=== PATIENT | male | born 1960 | race African-American/Black ===

== ENCOUNTER 2017-03-25 13:27 | Emergency (ER) | payer BC ==
[2017-03-25 13:31] VITALS: BP 143/86; PULSE 68; TEMP 98.1; BMI 29.2
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
== END 2017-03-25 15:37 | disposition home or self-care (01) ==
LOC: JERFT 13:27
PROC: 2W3MXYZ Immobilization of Left Lower Extremity using Other Device (ICD-10-PCS; principal; 2017-03-25)
DX: M25.562 Pain in left knee (principal); X50.0XXA Overexertion from strenuous movement or load, initial encounter; X50.9XXA Other and unspecified overexertion or strenuous movements or postures, initial encounter; Y93.89 Activity, other specified; Y92.89 Other specified places as the place of occurrence of the external cause; Y99.8 Other external cause status
CPT/HCPCS: 73562-TC-LT; 99281-25

== ENCOUNTER 2020-06-24 17:30 | Inpatient (IN) | payer BC ==
--- NOTE | 2020-06-24 17:50 | PDOC ---
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 Patient reports 2 weeks of SOB. Initially got covid-19 tested because he was having a LLOYD and wanted to know if he had covid in the past and if he could donate plasma, ended up testing positive for active infection. Lives at home w ith family but has been self-isolating. Still has taste and smell but decreased PO intake, mild fevers intermittently. Here today for significantly worse SOB, now unable to ambulate from bed to bathroom and is SOB even at rest. No prior history of pulmonary disease. No meds taken. No drug allergies. Past History - Medical History Allergies/Adverse Reactions: Allergies Allergy/AdvReac Type Severity Reaction Status Date / Time No Known Allergies Allergy Verified 06/24/20 17:38 Home Medications: Ambulatory Orders Naproxen [Naprosyn -] 500 mg PO BID PRN #14 tablet MDD 2 03/25/17 HTN: Yes Hypercholesterolemia: Yes - Immunization History Immunization Up to Date: Yes - Psycho-Social/Smoking History Smoking History: Never smoked Review of Systems - Review of Systems Able to Perform ROS?: Yes Constitutional: Yes: Chills, Fever HEENTM: No: Symptoms Reported Respiratory: Yes: Cough, Shortness of Breath, SOB with Exertion, SOB at Rest. No: Productive cough Cardiac (ROS): No: Chest Pain, Irregular Heart Rate, Lightheadedness, Palpitations, Syncope ABD/GI: Yes: Poor Appetite, Poor Fluid Intake. No: Constipated, Diarrhea, Nausea, Vomiting : No: Symptoms Reported Musculoskeletal: No: Symptoms Reported Integumentary: No: Symptoms Reported Neurological: No: Headache, Numbness, Paresthesia Endocrine: No: Symptoms Reported Hematologic/Lymphatic: No: Symptoms Reported All Other Systems: Reviewed and Negative *Physical Exam - Physical Exam General Appearance: Yes: Nourished, Appropriately Dressed, Other (appears fit and well-nourished, breathing heavily on NC). No: Apparent Distress HEENT: positive: EOMI, TEJA, Normal Voice, Symmetrical, Pharynx Normal, Hearing Grossly Normal. negative: Scleral Icterus (R), Scleral Icterus (L), Pharyngeal Erythema, Tonsillar Exudate, Tonsillar Erythema Neck: positive: Trachea midline, Normal Thyroid, Supple. negative: Tender, R igid, Lymphadenopathy (R), Lymphadenopathy (L), Tender lateral, Tender midline Respiratory/Chest: positive: Respiratory Distress, Labored Respiration, Rapid RR, Rhonchi (course breath sounds bilaterally to all mena). negative: Chest Tender, Lungs Clear, Normal Breath Sounds, Accessory Muscle Use, Crackles, Rales, Stridor, Wheezing Cardiovascular: positive: Regular Rhythm, Regular Rate. negative: Murmur, Tachycardia Gastrointestinal/Abdominal: positive: Normal Bowel Sounds, Flat, Soft. negative: Tender, Organomegaly, Pulsatile Mass, Guarding, Rebound Musculoskeletal: positive: Normal Inspection. negative: CVA Tenderness, Decreased Range of Motion, Vertebral Tenderness Extremity: positive: Normal Capillary Refill, Normal Inspection, Normal Range of Motion, Pelvis Stable. negative: Tender, Pedal Edema, Swelling, Calf Tenderness Neurologic: positive: Fully Oriented, Alert, Normal Mood/Affect, Normal Response ED Treatment Course - LABORATORY CBC & Chemistry Diagram: 06/24/20 17:50 06/24/20 17:50 Medical Decision Making - Medical Decision Making 06/24/20 19:01 Patient known covid-19 positive now presenting with LEVIN and worsening SOB, no prior pulmonary disease or cardiac disease, highly consistent with covid-19 pneumonitis and hypoxic respiratory failure. COVID-19 labs sent. Patient on bus monitor and isolated. Patient satting 95% on 7L NC, placing on high flow for patient comfort and getting ABG for evaluation of oxygenation. Able to tolerate PO, giving PO hydration. Discussed possible convalescent plasma infusion, which patient has signed consent for. Blood consent obtained. Will contact plasma team once labs back. 06/24/20 19:11 CXR appears remarkably like covid-19 pneumonitis. Labs notable for: - CBC WNL - ABG pH 7.568 CO2 28.80 O2 89.6 on 6L NC, satting well on NC without acidosis - NA 132 - LA 1.5 - AST 228 - ALT 230 06/24/20 19:52 Dr. Dukes consulted regarding plasma, will put orders in and see. Will admit TELE. 06/24/20 20:15 Discussed case with admitting team, accepts to tele under Dr. Johnson. Patient given food to eat, desats down to 87 while eating. Discharge - Discharge Information Problems reviewed: Yes Clinical Impression/Diagnosis: COVID-19 Respiratory failure Qualifiers: Chronicity: acute Respiratory failure complication: hypoxia Qualified Code(s): J96.01 - Acute respiratory failure with hypoxia Condition: Guarded - Admission Yes - Follow up/Referral Referrals: Glenn Delgado MD [Primary Care Provider] - - Patient Discharge Instructions - Post Discharge Activity
[2020-06-24] MEDS ORDERED: DEXAMETHASONE SOD PHOSPHATE 4 MG/1 ML VIAL IVPUSH ONE (18:29)
[2020-06-24] MEDS ORDERED: DEXAMETHASONE SOD PHOSPHATE 10 MG/1 ML VIAL ONE (18:33)
[2020-06-24 18:42] LABS: BASO % 0.6 % (0-2.0); EOS % 0.2 % (0-4.5); HEMATOCRIT 39.5 % (35.4-49); HEMOGLOBIN 13.3 GM/dL (11.7-16.9); LYMPH % 8.3 % (8-40); MCH 28.5 pg (25.7-33.7); MCHC 33.7 g/dl (32.0-35.9); MEAN CELL VOLUME 84.7 fl (80-96); MEAN PLT VOLUME 8.6 fl (7.5-11.1); MONO % 3.5 % (3.8-10.2); NEUT % 87.4 % (42.8-82.8); PLATELET COUNT 449 K/MM3 (134-434); RBC 4.66 M/mm3 (4.00-5.60); RDW 14.6 % (11.9-15.9); WHITE BLOOD COUNT 9.1 K/mm3 (4.0-10.0)
[2020-06-24] MEDS ORDERED: SODIUM CHLORIDE 500 ML IV SCH (18:45)
[2020-06-24 18:48] LABS: ARTERIAL BLD GAS O2 SATURATION 97.9 mmHg (95-98); ARTERIAL BLOOD GAS BASE EXCESS 4.1 mmol/L (-2-2); ARTERIAL BLOOD GAS PO2 89.6 mmHg (80-100); ARTERIAL BLOOD GAS pH 7.568 (7.350-7.450)
[2020-06-24 18:49] LABS: INR 1.18 (0.83-1.09); PROTHROMBIN TIME (PATIENT) 13.9 SEC (9.7-13.0)
[2020-06-24 18:51] LABS: ALLENS TEST POSITIVE
[2020-06-24 18:52] LABS: ACTIVATED PTT 34.3 SECONDS (25.2-36.5)
[2020-06-24 19:21] LABS: ALBUMIN 2.6 g/dl (3.4-5.0); ALK PHOS 192 U/L (45-117); ANION GAP 9 MMOL/L (8-16); BILIRUBIN,DIRECT 0.8 mg/dL (0.0-0.2); BILIRUBIN,TOTAL 1.6 mg/dL (0.2-1); BLOOD UREA NITROGEN 18.8 mg/dL (7-18); CALCIUM 8.2 mg/dL (8.5-10.1); CHLORIDE 94 mmol/L (98-107); CO2 29 mmol/L (21-32); CREATININE 1.1 mg/dL (0.55-1.3); GLUCOSE,RANDOM 112 mg/dL (74-106); POTASSIUM 4.1 mmol/L (3.5-5.1); SGOT/AST 228 U/L (15-37); SODIUM 132 mmol/L (136-145); TOT PROT 6.9 g/dl (6.4-8.2)
[2020-06-24 19:33] LABS: SGPT/ALT 230 U/L (13-61)
--- NOTE | 2020-06-24 20:05 | PDOC ---
Documentation entered by Ela Willis SCRIBE, acting as scribe for Ying Menchaca DO. Ying Menchaca DO: This documentation has been prepared by the carter, Ela Willis SCRIBE, under my direction and personally reviewed by me in its entirety. I confirm that the documentation accurately reflects all work, treatment, procedures, and medical decision making performed by me. 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 Patient tested positive for Covid at [facility] and has been self isolating at home but now his SOB is so bad he "cannot even walk from the bed to the bathroom". Patient endorses: intermittent fevers and decreased PO intake Patient denies: loss of smell or taste, or any other related symptoms Allergies: NKDA - Physicial Exam PE: 06/24/20 20:02 Gen: awake, conversational dyspnea heart: +s1s2 reg lungs: coarse rhonchorous bs b/l bases abd: soft, nt/nd +bs ext: no c/c/e - Medical Decision Making 06/24/20 20:02 a/p: 60yo male with +covid 19 test at [facility] -pt with increasing sob, restart of diarrhea -pt with coarse bs -concern for worsening covid19 diseases -conversational dyspnea, unable to walk from bedroom to kitchen without getting sob -will send labs, covid biomarkers, cxr -decadron given -will need admission as pulse ox 82 RA 06/24/20 20:04 pt more comfortable on high flow cxr shows bilateral patchy infiltrates covid biomarkers elevated case discussed with dr. Dukes who will dose remdesivir pt updated pending discussion with junito for admission 06/24/20 20:15 resident discussed the case with junito who accepts pt to service Discharge - Discharge Information Problems reviewed: Yes Clinical Impression/Diagnosis: COVID-19 Respiratory failure Qualifiers: Chronicity: acute Respiratory failure complication: hypoxia Qualified Code(s): J96.01 - Acute respiratory failure with hypoxia Condition: Guarded - Admission Yes - Follow up/Referral Referrals: Glenn Delgado MD [Primary Care Provider] - - Patient Discharge Instructions - Post Discharge Activity
[2020-06-24 20:18] LABS: EPI CELLS 11 /uL (0-25.1); HYALINE CASTS 0 /uL (0-3.1); URINE APPEARANCE CLEAR; URINE BACTERIA 55 /uL (0-1359); URINE BILIRUBIN 1+ (NEGATIVE); URINE COLOR DK YELLOW; URINE GLUCOSE (UA) NEGATIVE (NEGATIVE); URINE KETONE NEGATIVE (NEGATIVE); URINE LEUK ESTERASE NEGATIVE (NEGATIVE); URINE NITRITE NEGATIVE (NEGATIVE); URINE PROTEIN 2+ (NEGATIVE); URINE RBC 24 /uL (0-23.9); URINE UROBILINOGEN 4.0 E.U/dl mg/dL (0.2-1.0); URINE WBC 12 /uL (0-25.8)
[2020-06-24 20:23] LABS: LDH 894 U/L (87-246)
--- OUTSIDE RECORDS SUMMARY | 2020-06-24 20:42 | XMS ---
:1960 [facility] Providers Name Role Phone GUEVARA GALAN Unavailable Unavailable Re-disclosure Warning The records that you are about to access may contain information from federally- assisted alcohol or drug abuse programs. If such information is present, then the following federally mandated warning applies: This information has been disclosed to you from records protected by federal confidentiality rules (42 CFR part 2). The federal rules prohibit you from making any further disclosure of this information unless further disclosure is expressly permitted by the written consent of the person to whom it pertains or as otherwise permitted by 42 CFR part 2. A general authorization for the release of medical or other information is NOT sufficient for this purpose. The Federal rules restrict any use of the information to criminally investigate or prosecute any alcohol or drug abuse patient.The records that you are about to access may contain highly sensitive health information, the redisclosure of which is protected by Article 27-F of the [facility] Public Health law. If you continue you may haveaccess to information: Regarding HIV / AIDS; Provided by facilities licensed or operated by the [facility] Office of Mental Health; or Provided by the [facility] Office for People With Developmental Disabilities. If such information is present, then the following [facility] mandated warning applies: This information has been disclosed to you from confidential records which are protected by state law. State law prohibits you from making any further disclosure of this information without the specific written consent of the person to whom it pertains, or as otherwise permitted by law. Any unauthorized further disclosure in violation of state law may result in a fine or correction sentence or both. A general authorization for the release of medical or other information is NOT sufficient authorization for further disclosure. Encounters Encounter Providers Location Date Indications Data Source(s ) Outpatient Attender: ANGELIA, 06/18/2020 Z03.818 [facility] GUEVARA Mojica.Admitter: 10:32:00 AM Health Care GUEVARA GALAN [employer]T [employer] tion Z03.818 Outpatient Attender: ANGELIA, 06/18/2020 06:00:00 Z03.818 [facility] GUEVARA Mojica.Admitter: AM EDT Health Care GUEVARA GALAN. Corpora tion Z03.818 Insurance Providers Payer name Policy type / Policy ID Covered Covered constitution party's Policy Plan Coverage type constitution party ID relationship to [employer] Information [employer] PPO [id number] SP [id number] Problems, Conditions, and Diagnoses Code Display Name Description Problem Type Effective Data Sour ce(s) Dates Z03.818 Encounter for ENCNTR FOR OBS Diagnosis 06/18/2020 [facility] observation for FOR SUSP EXPSR TO 10:32:00 AM [employer] suspected OTH BIOLG AGENTS [employer] poration exposure to other RULED OUT biological agents ruled out Results ID Date Data Source [id number] 06/22/2020 12:00:00 AM EDT [facility] Name Value Range Interpretation Code Description Data Kyleigh rce(s) Supporting Document(s ) SARS-COV-2 Rohwer RNA RT-PCR [facility] This lab was ordered by [facility] and reported by [facility]. Procedure
--- NOTE | 2020-06-24 21:04 | PN ---
Teaching Attending Note Name of Resident: Richie Beyer ATTENDING PHYSICIAN STATEMENT I saw and evaluated the patient. I reviewed the resident's note and discussed the case with the resident. I agree with the resident's findings and plan as documented. SUBJECTIVE: Patient is a 60 year old man who tested positive for COVID-19 at [facility] a few days ago with PMH of HTN, HLD and Prediabetes presenting to the ER with worsening SOB and LEVIN. Patient reports two weeks of SOB. Lives at home with family but has been self-isolating. Still has taste and smell but decreased oral intake and mild fevers intermittently. He is unable to ambulate from bed to bathroom and now has SOB even at rest. No prior history of pulmonary disease. Patient denies chest pain, abdominal pain, headache, palpitations, dizziness, fever, chills, nausea, vomiting, diarrhea, constipation, dysuria, frequency, urgency, melena, hematochezia or hematuria. 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 Denies alcohol, tobacco or illicit drug use. No sick contacts or recent travels. Family history is unremarkable. OBJECTIVE: Alert Vital Signs Period Temp Pulse Resp BP Sys/Pires Pulse Ox Last 24 Hr 99.5 F-99.9 F 90-97 9-28 137-148/81-91 88-90 HEENT: No Jaundice, eye redness or discharge, PERRLA, EOMI. Normocephalic, atraumatic. External ears are normal and hearing is grossly intact. No nasal discharge. Neck: Supple, nontender. No palpable adenopathy or thyromegaly. No JVD Chest: Good effort. Clear to auscultation and percussion. Heart: Regular. No S3, rub or murmur Abdomen: Not distended, soft, nontender and no HSM. No rebound or guarding. Normal bowel sounds. Ext: Peripheral pulses intact. No leg edema. Skin: Warm and dry. No petechiae, rash or ecchymosis. Neuro: Alert. Oriented x3. CN 2-12 grossly intact. Sensation grossly intact in all four extremities and DTR are symmetric. Psych: Appropriate mood and affect. Good insight. Home Medications Medication Instructions Recorded Naproxen [Naprosyn -] 500 mg PO BID PRN #14 tablet MDD 2 03/25/17 Abnormal Lab Results 09/06/24/20 06/24/20 17:50 17:50 17:50 Plt Count 449 H Neutrophils % 87.4 H Monocytes % 3.5 L Nucleated RBC % 1 H PT with INR 13.90 H INR 1.18 H D-Dimer 1899 H ABG pH ABG pCO2 ABG Base Excess Sodium Chloride BUN Random Glucose Calcium Ferritin Total Bilirubin Direct Bilirubin AST ALT Alkaline Phosphatase LD Total Creatine Kinase C-Reactive Protein Albumin Urine Protein Urine Bilirubin 06/24/20 06/24/20 06/24/20 17:50 17:50 18:30 Plt Count Neutrophils % Monocytes % Nucleated RBC % PT with INR INR D-Dimer ABG pH 7.568 H ABG pCO2 28.30 L ABG Base Excess 4.1 H Sodium 132 L Chloride 94 L BUN 18.8 H Random Glucose 112 H Calcium 8.2 L Ferritin > 2000.0 H Total Bilirubin 1.6 H Direct Bilirubin 0.8 H AST 228 H ALT 230 H Alkaline Phosphatase 192 H LD Total 894 H Creatine Kinase 376 H C-Reactive Protein > 19.0 H Albumin 2.6 L Urine Protein 2+ H Urine Bilirubin 1+ H Current Medications Generic Name Dose Route Start Last Admin Trade Name Freq PRN Reason Stop Dose Admin Amlodipine Besylate 5 mg 06/25/20 10:00 Norvasc - PO DAILY [facility] Ascorbic Acid 250 mg 06/25/20 10:00 Vitamin C - PO BID [facility] Dexamethasone 6 mg 06/25/20 10:00 Decadron - PO DAILY [facility] Enoxaparin Sodium 90 mg 06/25/20 01:00 06/25/20 01:48 Lovenox - SQ 90 mg BID [facility] Administration Non-Formulary Medication 100 250 mls @ 250 mls/hr 06/25/20 22:31 mg/ Sodium Chloride IVPB 06/28/20 10:59 DAILY [facility] Doxycycline Hyclate 100 mg/ 100 mls @ 50 mls/hr 06/25/20 00:22 06/25/20 01:05 Dextrose IVPB 100 mls/hr BID [facility] Administration Zinc Sulfate 220 mg 06/25/20 10:00 Orazinc - PO DAILY [facility] ASSESSMENT AND PLAN: 1. COVID-19 pneumonia/Acute hypoxic respiratory failure - CXR shows cardiomegaly with bilateral airspace opacities. Oxygen saturation was 87% on room air. Viral testing for COVID-19 ordered and patient placed on airborne, droplet and contact isolation. Started on supplemental high flow oxygen via nasal cannula. ER staff gave Dexamethasone 6 mg IV, consulted Pulmonary and patient will get Remdesivir and convalescent plasma. Will monitor LFTs, get RUQ sonogram and avoid heptotoxic drugs. EKG shows NSR at 88/minute and QTc [address]-T wave changes. Initial troponin is negative. Will avoid drugs that may prolong QTc. Will treat patient with Lovenox 90 mg sq q 12 hours, Zinc sulfate, Pepcid, Vitamin C, IV Ceftriaxone and Azithromycin and consult ID. Will continue comprehensive care for all of patients comorbid conditions. 2. Hypoalbuminemia - Possibly due to combined effects of proteinuria, malnutrition and inflammation associated with comorbid conditions. Will ensure adequate dietary protein intake and also consult bicycle technician. 3. Prediabetes - Will check HbA1c and when stable get urine protein/creatinine ratio since he may benefit from ACEI/ARB therapy. Implement sliding scale insulin regimen. Provide comprehensive diabetes care with patient teaching and counseling about the importance of adherence to prescribed diabetes regimen, euglycemia, eye care and foot care. 4. Hypertension Will restart suitable outpatient antihypertensive drugs when clinically appropriate. Subsequently, will revise regimen to ensure [id number] excellent BP control. Patient counseled on the injurious effects of uncontrolled hypertension. Nonpharmacologic measures to control hypertension like weight loss, salt restriction and exercise stressed. Importance of adherence to treatment regimen and attainment of normotension emphasized. 5. DVT prophylaxis - Lovenox 90 mg SQ q 12 hours. 6. Advance directives - Full code
[2020-06-24] MEDS ORDERED: REMDESIVIR 200 MG in SODIUM CHLORIDE 210 ML IVPB ONE (22:31)
--- NOTE | 2020-06-25 00:32 | HP ---
CHIEF COMPLAINT: SOB PCP: HISTORY OF PRESENT ILLNESS: 60M w/ pmh of HTN, HLD, pre-DM BIBA for complaint of SOB while at rest, lying down. Had outpt testing and found to be COVID+, 2d prior. Has had SOB [id number], usually with activity and walking throughout the house. Today was concerned bc it was the first time he was SOB while at rest. Has had associated fever(intermittently 100F, on home thermometer), diarrhea, low appetite, weight loss. Denies cough, NV, loss of taste, loss of smell. [place] Has had sick coworkers. No sick family members. ER course was notable for: -99.9F, 97, 137/91, 24 -88% on 4L, 95% on 7L, then placed on hiflow for comfort -Ddimer 1898 -AST/ALT 228/250 -CXR: congestive and bilateral infilitrative changes -dexamethasone 6mg IVP, NS @100 -EM contacted Roseline who approved Remdesivir Recent Travel: none PAST MEDICAL HISTORY: as above PAST SURGICAL HISTORY: cervical neck fusion x2, knee x2, shoulder sx Social History: Smoking: smoking during teenage years(4-5cig/d) Alcohol: denies Drugs: denies Allergies No Known Allergies Allergy (Verified 06/24/20 17:38) HOME MEDICATIONS: Home Medications Medication Instructions Recorded Naproxen [Naprosyn -] 500 mg PO BID PRN #14 tablet MDD 2 03/25/17 REVIEW OF SYSTEMS CONSTITUTIONAL: fever, chills,loss of appetite, weight change Absent: diaphoresis, generalized weakness, malaise, HEENT: Absent: rhinorrhea, nasal congestion, throat pain, throat swelling, difficulty swallowing, mouth swelling, ear pain, eye pain, visual changes CARDIOVASCULAR: Absent: chest pain, syncope, palpitations, irregular heart rate, lightheadedness, peripheral edema RESPIRATORY: shortness of breath, dyspnea with exertion, Absent: cough, orthopnea, wheezing, stridor, hemoptysis GASTROINTESTINAL:diarrhea, Absent: abdominal pain, abdominal distension, nausea, vomiting, constipation, melena, hematochezia GENITOURINARY: Absent: dysuria, frequency, urgency, hesitancy, hematuria, flank pain, genital pain MUSCULOSKELETAL: Absent: myalgia, arthralgia, joint swelling, back pain, neck pain SKIN: Absent: rash, itching, pallor HEMATOLOGIC/IMMUNOLOGIC: Absent: easy bleeding, easy bruising, lymphadenopathy, frequent infections ENDOCRINE: Absent: unexplained weight gain, unexplained weight loss, heat intolerance, cold intolerance NEUROLOGIC: headache, Absent: focal weakness or paresthesias, dizziness, unsteady gait, seizure, mental status changes, bladder or bowel incontinence PSYCHIATRIC: Absent: anxiety, depression, suicidal or homicidal ideation, hallucinations. PHYSICAL EXAMINATION Vital Signs - 24 hr 06/24/20 06/24/20 06/24/20 18:03 18:42 18:43 Temperature 99.9 F H 99.5 F Pulse Rate 97 H Pulse Rate [ 94 H Apical] Respiratory 24 H 28 H Rate Blood Pressure 137/91 Blood Pressure 148/90 [Right Arm] O2 Sat by Pulse 88 L 88 L 88 L Oximetry (%) 06/24/20 06/24/20 06/24/20 18:45 19:53 20:30 Temperature Pulse Rate Pulse Rate [ 90 Apical] Respiratory 9 L Rate Blood Pressure Blood Pressure 137/81 [Right Arm] O2 Sat by Pulse 90 L 88 L 90 L Oximetry (%) 06/24/20 06/24/20 23:28 23:46 Temperature Pulse Rate Pulse Rate [ 78 Apical] Respiratory 22 H Rate Blood Pressure Blood Pressure 129/76 [Right Arm] O2 Sat by Pulse 94 L 97 Oximetry (%) GENERAL: Awake, alert, and fully oriented, in no acute distress. Well-fed HEAD: Normal with no signs of trauma. EYES: sclera anicteric, conjunctiva clear. No lid lag. EARS, NOSE, THROAT: oropharynx clear without exudates. Moist mucous membranes. NECK: supple without lymphadenopathy, JVD, or masses. LUNGS: Breath sounds equal, coarse bilateral BS. No wheezes. No accessory muscle use. Breathing 91% on Hi-Flow(50L/min, 30%) HEART: Regular rate and rhythm, normal S1 and S2 without murmur, rub or gallop. ABDOMEN: Soft, nontender, not distended, no guarding, no rebound. MUSCULOSKELETAL: Normal range of motion at all joints. UPPER EXTREMITIES: 2+ pulses, warm, well-perfused. No cyanosis. No clubbing. No peripheral edema. LOWER EXTREMITIES: 2+ pulses, warm, well-perfused. No calf tenderness. No peripheral edema. NEUROLOGICAL: Normal speech. Moving all extremities spontaneously and w/o issues SKIN: Warm, dry, normal turgor, no rashes or lesions noted, normal capillary re fill. Laboratory Results - last 24 hr 06/24/20 06/24/20 06/24/20 17:50 17:50 17:50 WBC 9.1 RBC 4.66 Hgb 13.3 Hct 39.5 MCV 84.7 MCH 28.5 MCHC 33.7 RDW 14.6 Plt Count 449 H MPV 8.6 Absolute Neuts (auto) 8.0 Neutrophils % 87.4 H Lymphocytes % 8.3 Monocytes % 3.5 L Eosinophils % 0.2 Basophils % 0.6 Nucleated RBC % 1 H PT with INR 13.90 H INR 1.18 H PTT (Actin FS) 34.3 D-Dimer 1899 H Anticoagulation Therapy Puncture Site Patient Temperature ABG pH ABG pCO2 ABG pO2 ABG HCO3 ABG O2 Sat (Measured) ABG O2 Content ABG Base Excess John Test Patient On Oxygen O2 Delivery Device Oxygen Flow Rate Vent Mode Vent Rate Mechanical Rate PEEP Pressure Support Vent Sodium Potassium Chloride Carbon Dioxide Anion Gap BUN Creatinine Est GFR (CKD-EPI)AfAm Est GFR (CKD-EPI)NonAf Random Glucose Lactic Acid Calcium Ferritin Total Bilirubin Direct Bilirubin AST ALT Alkaline Phosphatase LD Total Creatine Kinase Creatine Kinase Index CK-MB (CK-2) Troponin I C-Reactive Protein Total Protein Albumin Urine Color Urine Appearance Urine pH Ur Specific [place] Urine Protein Urine Glucose (UA) Urine Ketones Urine Blood Urine Nitrite Urine Bilirubin Urine Urobilinogen Ur Leukocyte Esterase Urine WBC (Auto) Urine RBC (Auto) Urine Casts (Auto) U Epithel Cells (Auto) Urine Bacteria (Auto) Blood Type Antibody Screen 06/24/20 06/24/20 06/24/20 17:50 17:50 17:50 WBC RBC Hgb Hct MCV MCH MCHC RDW Plt Count MPV Absolute Neuts (auto) Neutrophils % Lymphocytes % Monocytes % Eosinophils % Basophils % Nucleated RBC % PT with INR INR PTT (Actin FS) D-Dimer Anticoagulation Therapy Puncture Site Patient Temperature ABG pH ABG pCO2 ABG pO2 ABG HCO3 ABG O2 Sat (Measured) ABG O2 Content ABG Base Excess John Test Patient On Oxygen O2 Delivery Device Oxygen Flow Rate Vent Mode Vent Rate Mechanical Rate PEEP Pressure Support Vent Sodium 132 L Potassium 4.1 Chloride 94 L Carbon Dioxide 29 Anion Gap 9 BUN 18.8 H Creatinine 1.1 Est GFR (CKD-EPI)AfAm 82.95 Est GFR (CKD-EPI)NonAf 71.57 Random Glucose 112 H Lactic Acid 1.5 Calcium 8.2 L Ferritin > 2000.0 H Total Bilirubin 1.6 H Direct Bilirubin 0.8 H AST 228 H ALT 230 H Alkaline Phosphatase 192 H LD Total 894 H Creatine Kinase 376 H Creatine Kinase Index No Result Required. CK-MB (CK-2) < 1.0 Troponin I < 0.02 C-Reactive Protein > 19.0 H Total Protein 6.9 Albumin 2.6 L Urine Color Dk yellow Urine Appearance Clear Urine pH 6.0 Ur Specific [place] 1.012 Urine Protein 2+ H Urine Glucose (UA) Negative Urine Ketones Negative Urine Blood Trace Urine Nitrite Negative Urine Bilirubin 1+ H Urine Urobilinogen 4.0 e.u/dl Ur Leukocyte Esterase Negative Urine WBC (Auto) 12 Urine RBC (Auto) 24 Urine Casts (Auto) 0 U Epithel Cells (Auto) 11 Urine Bacteria (Auto) 55 Blood Type Antibody Screen 06/24/20 06/24/20 17:50 18:30 WBC RBC Hgb Hct MCV MCH MCHC RDW Plt Count MPV Absolute Neuts (auto) Neutrophils % Lymphocytes % Monocytes % Eosinophils % Basophils % Nucleated RBC % PT with INR INR PTT (Actin FS) D-Dimer Anticoagulation Therapy No Result Required. Puncture Site Left radial Patient Temperature No Result Required. ABG pH 7.568 H ABG pCO2 28.30 L ABG pO2 89.6 ABG HCO3 25.2 ABG O2 Sat (Measured) 97.9 ABG O2 Content No Result Required. ABG Base Excess 4.1 H John Test Positive Patient On Oxygen No Result Required. O2 Delivery Device No Result Required. Oxygen Flow Rate 6 Vent Mode No Result Required. Vent Rate No Result Required. Mechanical Rate No Result Required. PEEP No Result Required. Pressure Support Vent No Result Required. Sodium Potassium Chloride Carbon Dioxide Anion Gap BUN Creatinine Est GFR (CKD-EPI)AfAm Est GFR (CKD-EPI)NonAf Random Glucose Lactic Acid Calcium Ferritin Total Bilirubin Direct Bilirubin AST ALT Alkaline Phosphatase LD Total Creatine Kinase Creatine Kinase Index CK-MB (CK-2) Troponin I C-Reactive Protein Total Protein Albumin Urine Color Urine Appearance Urine pH Ur Specific [place] Urine Protein Urine Glucose (UA) Urine Ketones Urine Blood Urine Nitrite Urine Bilirubin Urine Urobilinogen Ur Leukocyte Esterase Urine WBC (Auto) Urine RBC (Auto) Urine Casts (Auto) U Epithel Cells (Auto) Urine Bacteria (Auto) Blood Type B POSITIVE Antibody Screen Negative ASSESSMENT/PLAN: 60M w/ pmh of HTN, HLD, pre-DM BIBA for complaint of SOB while at rest, while lying down. Had outpt testing and found to be COVID+, 2d prior. Pt having O2 requirements(Hiflow, Sat at 91%), Labs notable for elevated inflamm markers(D- dimer 1899, CRP >19, LDH 894, ferritin > 2k). CXR showing b/l patchy infiltrates. Pt admitted for acute hypoxic respiratory failure 2/2 COVID pneumonitis. #Acute Hypoxic Respiratory Failure 2/2 COVID Pneumonitis --cannot r/o superimposed bacterial PNA - supplemental O2 requriements: --Hi-Flow and titrate down as tolerated --Goal oxygenation >90% - abx regimen: --ceftriaxone + doxycline - zinc, vitamin c - possible convalescent plasma - Remedesivir started - Pulmon consulted(Roseline): --recs pending - ID consulted(David): --recs pending #elevated inflamatory markers --less likely LE DVT, as lack of calf tenderness; less likely PE, as pt is nontachycardic and nontachypneic > D-dimer 1899, CRP >19, LDH 894, ferritin > 2k - holding off on CTA chest or venous duplex of LE for now - AC regimen: --therapeutic Lovenox, 80mg BID - steroid regimen: --dexamethasone 6mg, QD - trend daily inflammatory markers #prolonged QTc > EKG: NSR, QTc 459 - avoid QTc prolonging meds #transminitis --likely 2/2 COVID > AST/ALT 228/250 #chronic HTN - cw home Amloidipine(pt doesn' know dose) #chronic HLD - pt doesn't know which statin FEN - avoid mIVF - regular diet DVT PPX - therapeutic lovenox Family Medical History Family History: As Documented Family Hx Cancer: Mother (uterine CA) Visit type - Emergency Visit Emergency Visit: Yes ED Registration Date: 06/24/20 Care time: The patient presented to the Emergency Department on the above date and was hospitalized for further evaluation of their emergent condition. - New Patient This patient is new to me today: Yes Date on this admission: 06/25/20 - Critical Care Critical Care patient: No ATTENDING PHYSICIAN STATEMENT I saw and evaluated the patient. I reviewed the resident's note and discussed the case with the resident. I agree with the resident's findings and plan as documented. SUBJECTIVE: OBJECTIVE: ASSESSMENT AND PLAN:
[2020-06-25] MEDS ORDERED: DOXYCYCLINE HYCLATE 100 MG VIAL ONE ×4 (00:50→20:53)
[2020-06-25] MEDS ORDERED: CEFTRIAXONE 1 GM/50 ML BAG ONE (00:50)
[2020-06-25] MEDS: CEFTRIAXONE 1 GM in DEXTROSE 5%-WATER - 50 ML IVPB ONE ×2 (01:04→10:06)
[2020-06-25] MEDS: DOXYCYCLINE INJECTION 100 MG in DEXTROSE 5%-WATER - 100 ML IVPB SCH ×2 (01:05→10:00)
[2020-06-25] MEDS ORDERED: ENOXAPARIN NA (PORCINE) 100 MG/1 ML DISP.SYRIN SQ ONE ×2 (01:33→09:05)
[2020-06-25] MEDS: ENOXAPARIN NA (PORCINE) 80 MG/0.8 ML DISP.SYRIN SQ SCH ×3 (01:48→21:57)
[2020-06-25 06:57] LABS: EOS % 0.1 % (0-4.5); HEMATOCRIT 42.2 % (35.4-49); HEMOGLOBIN 13.7 GM/dL (11.7-16.9); LYMPH % 5.9 % (8-40); MCH 27.9 pg (25.7-33.7); MCHC 32.5 g/dl (32.0-35.9); MEAN CELL VOLUME 85.7 fl (80-96); MONO % 1.9 % (3.8-10.2); NEUT % 91.1 % (42.8-82.8); PLATELET COUNT 424 K/MM3 (134-434); RBC 4.93 M/mm3 (4.00-5.60); RDW 14.8 % (11.9-15.9); WHITE BLOOD COUNT 8.8 K/mm3 (4.0-10.0)
[2020-06-25 07:27] LABS: MAGNESIUM 3.1 mg/dL (1.8-2.4)
[2020-06-25 09:02] LABS: ALBUMIN 2.5 g/dl (3.4-5.0); ALK PHOS 192 U/L (45-117); ANION GAP 15 MMOL/L (8-16); CALCIUM 9.1 mg/dL (8.5-10.1); CHLORIDE 100 mmol/L (98-107); CO2 21 mmol/L (21-32); GLUCOSE,RANDOM 185 mg/dL (74-106); POTASSIUM 4.3 mmol/L (3.5-5.1); SGOT/AST 175 U/L (15-37); SGPT/ALT 236 U/L (13-61); SODIUM 136 mmol/L (136-145); TOT PROT 7.1 g/dl (6.4-8.2)
[2020-06-25] MEDS ORDERED: DEXAMETHASONE SOD PHOSPHATE 10 MG/1 ML VIAL ONE (09:04)
[2020-06-25] MEDS ORDERED: ZINC SULFATE 220 MG CAPSULE (FP) ONE (09:04)
[2020-06-25] MEDS ORDERED: amLODIPine BESYLATE 5 MG TABLET (FP) ONE (09:04)
[2020-06-25] MEDS ORDERED: ASCORBIC ACID 500 MG TABLET (FP) ONE (09:04)
[2020-06-25] MEDS ORDERED: DEXAMETHASONE 4 MG TABLET (FP) PO SCH (10:00)
[2020-06-25] MEDS: ASCORBIC ACID 250 MG TABLET (FP) PO SCH ×2 (10:00→21:54)
[2020-06-25] MEDS: CHOLECALCIFEROL (VIT D3) 1,000 UNIT (25 MCG) TABLET PO SCH (10:00)
[2020-06-25] MEDS: ZINC SULFATE 220 MG CAPSULE (FP) PO SCH (10:00)
[2020-06-25] MEDS: amLODIPine BESYLATE 5 MG TABLET (FP) PO SCH (10:41)
[2020-06-25 11:11] LABS: PHOSPHOROUS 3.9 mg/dL (2.5-4.9)
--- NOTE | 2020-06-25 11:35 | CON.PULM ---
Consult Consult Specialty:: PULM/CCM Referred by:: ER Reason for Consultation:: SOB - History of Present Illness Chief Complaint: SOB History of Present Illness: 60 M, tested positive for COVID-[address] [facility] a few days ago. Additional history of HTN, HLD and "Prediabetes". Admitted via the ER due to worsening SOB and LEVIN over the past 2weeks. Now reports SOB even at rest. No hemoptysis. No night sweats. No significant GI symptoms. CXR: Bilateral infiltrates consistent with capillary leak syndrome. - History Source History Provided By: Patient Limitations to Obtaining History: No Limitations - Alcohol/Substance Use Hx Alcohol Use: No - Smoking History Smoking history: Never smoked Home Medications - Allergies Allergies/Adverse Reactions: Allergies Allergy/AdvReac Type Severity Reaction Status Date / Time No Known Allergies Allergy Verified 06/24/20 17:38 - Home Medications Home Medications: Ambulatory Orders NK [No Known Home Medication] 06/25/20 Family Medical History Family Hx Cancer: Mother (uterine CA) Review of Systems - Review of Systems Constitutional: reports: Malaise, Weakness. denies: Chills, Night Sweats Eyes: reports: No Symptoms HENT: reports: No Symptoms Neck: reports: No Symptoms Cardiovascular: reports: Shortness of Breath. denies: Chest Pain, Edema, Palpitations Respiratory: reports: Cough, SOB, SOB on Exertion. denies: Hemoptysis, Orthopnea, PND, Snoring, Wheezing Gastrointestinal: reports: No Symptoms Genitourinary: reports: No Symptoms Breasts: reports: No Symptoms Reported Musculoskeletal: reports: No Symptoms Integumentary: reports: No Symptoms Neurological: reports: No Symptoms Endocrine: reports: No Symptoms Hematology/Lymphatic: reports: No Symptoms Psychiatric: reports: No Symptoms Physical Exam Vital Sings: Vital Signs Temperature 98.9 F 06/25/20 08:00 Pulse Rate 74 06/25/20 08:00 Respiratory Rate 20 06/25/20 08:00 Blood Pressure 129/78 06/25/20 08:00 O2 Sat by Pulse Oximetry (%) 92 L 06/25/20 10:53 Constitutional: Yes: Well Nourished, No Distress Eyes: Yes: Conjunctiva Clear, EOM Intact HENT: Yes: Atraumatic, Normocephalic Neck: Yes: Supple, Trachea Midline Cardiovascular: Yes: Regular Rate and Rhythm Respiratory: Yes: Cough, Diminished, Rhonchi, SOB on Exertion, Other (HFOT). No: Accessory Muscle Use, SOB, Stridor, Tachypnea, Wheezes ...Inspection: Yes: WNL ...Clubbing: No Gastrointestinal: Yes: Normal Bowel Sounds, Soft Renal/: Yes: WNL Musculoskeletal: Yes: WNL Extremities: Yes: WNL Edema: No Peripheral Pulses WNL: Yes Integumentary: Yes: WNL Neurological: Yes: WNL, Alert, Oriented ...Motor Strength: WNL Psychiatric: Yes: WNL, Alert, Oriented Labs: CBC, BMP 06/25/20 06:30 06/25/20 06:30 ABG Results ABG pH 7.568 (7.350-7.450) H 06/24/20 18:30 ABG HCO3 25.2 mmol/L (22-27) 06/24/20 18:30 ABG O2 Sat (Measured) 97.9 mmHg (95-98) 06/24/20 18:30 ABG O2 Content No Result Required. 06/24/20 18:30 ABG Base Excess 4.1 mmol/L (-2-2) H 06/24/20 18:30 Imaging - Results Chest X-ray: Report Reviewed, Image Reviewed Problem List - Problems (1) Pulmonary capillary leak syndrome Code(s): J80 - ACUTE RESPIRATORY DISTRESS SYNDROME (2) COVID-19 Code(s): U07.1 - COVID POSITIVE (3) Respiratory failure Code(s): J96.90 - RESPIRATORY FAILURE, UNSP, UNSP W HYPOXIA OR HYPERCAPNIA Qualifiers: Chronicity: acute Respiratory failure complication: hypoxia Qualified Code(s): J96.01 - Acute respiratory failure with hypoxia Assessment/Plan Remdesivir x 5 days Will investigate convalescent plasma ordering. Daily Decadron Noted empiric ABX : to discuss with ID Full AC HFOT support Follow inflammatory markers Will follow closely 4W/4S monitoring for oximetry Thank you. Dr Dukes
[2020-06-25 11:52] LABS: ANISOCYTOSIS 1+; MACROCYTOSIS 0; PLATELET ESTIMATE NORMAL
--- NOTE | 2020-06-25 13:53 | PN ---
Teaching Attending Note Name of Resident: Lobito Mike ATTENDING PHYSICIAN STATEMENT I saw and evaluated the patient. I reviewed the resident's note and discussed the case with the resident. I agree with the resident's findings and plan as documented. SUBJECTIVE: seen in am . he feels better compared to yesterday. reports improvement in breathing. had intermittent fevers at home. no cough , no CP . had one episode of diarrhea as out pt , and now stopped. No dysuria or frequency. OBJECTIVE: NAD , awake, alert, cooperative . High flow O2 on . CV: RRR, no MRG Lungs: crackles heard on R lung field half way down. and L base. Ext: No edema or rerythema onupper or lower extremities. Abd: soft, NT, ND , NL BS ASSESSMENT AND PLAN: 60 y/o man with h/o pre-DM, HL, HTN, recent COVID diagnosis ( 1 week white ) who presented with SOB, and fever and was found to have acute hypoxic resp failure. 1- Acute hypoxic resp failure 2- COVID PNA 3- Transaminitis : due to COVID plan : - elevated inflammatory markers and D dimer noted. - cont Lovenox. He understands and accepts risk of bleeding with AC - cont remdisivir , day 2/5 - cont dexamethasone , day 2/10 - Convalescent plasma was d/w him, He agrees. - ceftriaxone and doxy. Id eval - follow inflammatory markers. - cont High flow O2. cont Pulse Ox monitoring - Airborne isolation
--- NOTE | 2020-06-25 14:34 | PN ---
Physical Exam: SUBJECTIVE: Patient seen and examined in the ED, isolated 2/2 positive COVID status. On HF @ 50L 40%. Talking in full sentences, no labored breathing. OBJECTIVE: Vital Signs Period Temp Pulse Resp BP Sys/Pires Pulse Ox Last 24 Hr 98.9 F-99.9 F 74-97 9-28 129-148/76-91 88-97 GENERAL: The patient is awake, alert, and fully oriented HEAD: Normal with no signs of trauma. EYES: PERRL, extraocular movements intact, sclera anicteric, conjunctiva clear. No ptosis. ENT: Oropharynx clear without exudates, moist mucous membranes. NECK: Trachea midline, full range of motion, supple. LUNGS: Wheezing noted in the upper lung quadrants, crackles noted below. HEART: Regular rate and rhythm, S1, S2 without murmur, rub or gallop. ABDOMEN: Soft, nontender, nondistended, normoactive bowel sounds EXTREMITIES: 2+ pulses, warm, well-perfused, no edema. NEUROLOGICAL: Normal speech, gait not observed. PSYCH: Normal mood, normal affect. SKIN: Warm, dry, normal turgor, no rashes or lesions noted Laboratory Results - last 24 hr CBC, BMP 06/25/20 06:30 06/25/20 06:30 Active Medications Generic Name Dose Route Start Last Admin Trade Name Adair PRN Reason Stop Dose Admin Amlodipine Besylate 5 mg 06/25/20 10:00 06/25/20 10:41 Norvasc - PO 5 mg DAILY ERICKSON Administration Ascorbic Acid 250 mg 06/25/20 10:00 06/25/20 10:00 Vitamin C - PO 250 mg BID ERICKSON Administration Cholecalciferol 1,000 unit 06/25/20 10:00 06/25/20 10:00 Vitamin D3 - PO 1,000 unit DAILY ERICKSON Administration Dexamethasone Sodium Phosphate 6 mg 06/26/20 10:00 Decadron Injection - IVPUSH DAILY ERICKSON Enoxaparin Sodium 90 mg 06/25/20 01:00 06/25/20 10:00 Lovenox - SQ 90 mg BID ERICKSON Administration Non-Formulary Medication 100 250 mls @ 250 mls/hr 06/25/20 22:00 mg/ Sodium Chloride IVPB 06/28/20 22:59 DAILY@2200 ERICKSON Doxycycline Hyclate 100 mg/ 100 mls @ 50 mls/hr 06/25/20 00:22 06/25/20 10:00 Dextrose IVPB 50 mls/hr BID ERICKSON Administration Ceftriaxone Sodium 1 gm/ 50 mls @ 100 mls/hr 06/26/20 06:00 Dextrose IVPB DAILY ERICKSON Protocol Zinc Sulfate 220 mg 06/25/20 10:00 06/25/20 10:00 Orazinc - PO 220 mg DAILY ERICKSON Administration ASSESSMENT/PLAN: 60 yo M w/ PMHx of HTN, HLD, and pre-diabetes, 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 ACUTE HYPOXIC RESPIRATORY FAILURE -Monitor Sat, Keep above 90 -High Flow O2 -No nebulizers 11/10 Covid -Negative: -Legionella -Strep Pneumo COVID PNEUMONIA (+), R/O SUPERIMPOSED BACTERIAL PNEUMONIA -Covid Isolation precautions in effect -c/w remdisivir: Currently day 11/13 -c/w ceftriaxone: 1gm/day -c/w doxycycline: 100ml BID -c/w decadron: day 11/18 -c/w Vit C/D/Zinc c/w Therapeutic Lovenox -Convalescent Plasma on order -Daily Covid Labs -ID Consulted -If ALT > 5x ULN, or CrCl is <30 STOP Remdesivir -Trend CPK -Consider liver sonogram and hep serologies -Pulm Consulted -Working on Convalescent Plasma. Consent Signed TRANSAMINITIS -11/10 Covid -Trend LFTs HTN: -Norvasc 5mg qdaily FEN -No standing fluids -Monitor lytes -Regular diet PPx -Therapeutic Dose Lovenox DISPO: Continue to monitor the patient Visit type - Emergency Visit Emergency Visit: Yes ED Registration Date: 06/24/20 Care time: The patient presented to the Emergency Department on the above date and was hospitalized for further evaluation of their emergent condition. - New Patient This patient is new to me today: Yes Date on this admission: 06/25/20 - Critical Care Critical Care patient: No - Discharge Referral Referred to [facility] Med [facility] No ATTENDING PHYSICIAN STATEMENT I saw and evaluated the patient. I reviewed the resident's note and discussed the case with the resident. I agree with the resident's findings and plan as documented. SUBJECTIVE: OBJECTIVE: ASSESSMENT AND PLAN:
--- NOTE | 2020-06-25 16:12 | CON.ID ---
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 he had outpt testing for covid 19 at [facility] and was found to be postive-went for testing [facility]- got results that are on chart and are positive no nausea or vomiting no cough +fevers +myalgias +contacts at workplace no travel family is well and has been tested found to have bilateral infiltrates on cxray with hypoxia - History Source History Provided By: Patient, Medical Record - Past Medical History Cardio/Vascular: Yes: HTN, Hyperlipdemia Endocrine: Yes: Other (prediabetes) - Past Surgical History Additional Surgical History: cefvical neck fusions, knee and shoulder surgery - Alcohol/Substance Use Hx Alcohol Use: No - Smoking History Smoking history: Former smoker (smoked as teenager) - Social History Usual Living Arrangement: With Spouse ADL: Independent Occupation: works at [employer] History of Recent Travel: No Home Medications - Allergies Allergies/Adverse Reactions: Allergies Allergy/AdvReac Type Severity Reaction Status Date / Time No Known Allergies Allergy Verified 06/24/20 17:38 - Home Medications Home Medications: Ambulatory Orders Allopurinol [Zyloprim -] 100 mg PO DAILY 06/25/20 Amlodipine Besylate 10 mg PO DAILY 06/25/20 Ezetimibe [Zetia] 10 mg PO DAILY 06/25/20 Hydrochlorothiazide 25 mg PO DAILY 06/25/20 Metformin HCl [Glucophage] 500 mg PO BID 06/25/20 Pravastatin Sodium [Pravachol (Nf)] 40 mg PO DAILY 06/25/20 Family Medical History Family Hx Cancer: Mother (uterine CA) Review of Systems - Review of Systems Constitutional: reports: Fever, Lethargy Eyes: reports: No Symptoms HENT: reports: No Symptoms Neck: reports: No Symptoms Cardiovascular: reports: Shortness of Breath. denies: Chest Pain Respiratory: reports: SOB, SOB on Exertion. denies: Cough Gastrointestinal: reports: No Symptoms Genitourinary: reports: No Symptoms Breasts: reports: No Symptoms Reported Musculoskeletal: reports: No Symptoms Physical Exam Vital Signs: Vital Signs Temperature 98.3 F 06/25/20 12:30 Pulse Rate 79 09/17/20 12:30 Respiratory Rate 20 06/25/20 12:30 Blood Pressure 124/74 06/25/20 12:30 O2 Sat by Pulse Oximetry (%) 93 L 06/25/20 12:30 Constitutional: Yes: Well Nourished, No Distress Eyes: Yes: Conjunctiva Clear HENT: Yes: Atraumatic, Normocephalic Neck: Yes: Supple Cardiovascular: Yes: Regular Rate and Rhythm Respiratory: Yes: Diminished (BS bilaterally) Gastrointestinal: Yes: Normal Bowel Sounds, Soft ...Rectal Exam: Yes: Deferred Renal/: No: CVA Tenderness - Left, CVA Tenderness - Right Extremities: Yes: WNL Edema: No Psychiatric: Yes: Alert, Oriented Labs: CBC, BMP 06/25/20 06:30 06/25/20 06:30 Imaging - Results Chest X-ray: Report Reviewed, Image Reviewed Problem List - Problems (1) Pneumonia due to COVID-19 virus Code(s): U07.1 - COVID POSITIVE; J12.89 - OTHER VIRAL PNEUMONIA (2) Acute hypoxemic respiratory failure due to COVID-19 Code(s): U07.1 - COVID POSITIVE; J96.01 - ACUTE RESPIRATORY FAILURE WITH HYPOXIA (3) Abnormal LFTs Code(s): R94.5 - ABNORMAL RESULTS OF LIVER FUNCTION STUDIES (4) Rhabdomyolysis Code(s): M62.82 - RHABDOMYOLYSIS Assessment/Plan patient has agreed to remdesivir which was started last night he has agreed to plasma as well he is agreeable to HIV testing which I will obtain NOW continue dexamethasone and anticoagulation continue rocephin/doxy until cultures are back and legionella antigen is back abnl lfts-monitor daily IF ALT IS GREATER THEN 5X ULN THEN REMDESIVIR SHOUD BE STOPPED ALSO IF CRCL IS LESS THEN 30 DAILY CMP ORDERED consider liver sonogram and hep serologies trend cpk overall status is guarded
[2020-06-25 18:37] VITALS: BMI 28.5
[2020-06-25] MEDS ORDERED: PT OWN MED DRAWER 7, Y5N ONE (19:49)
[2020-06-25] MEDS ORDERED: DEXTROSE 5%-WATER 100 ML IVPB ONE ×2 (20:44→20:53)
[2020-06-25] MEDS: REMDESIVIR 100 MG in SODIUM CHLORIDE 230 ML IVPB SCH (21:51)
[2020-06-25] MEDS: DOXYCYCLINE INJECTION 100 MG in DEXTROSE 5%-WATER 100 ML IVPB SCH (21:52)
[2020-06-26] MEDS ORDERED: cefTRIAXone SODIUM 1 GM VIAL ONE ×2 (05:47→09:11)
[2020-06-26] MEDS ORDERED: DEXTROSE 5%-WATER - 50 ML IVPB ONE ×2 (05:48→09:11)
[2020-06-26] MEDS: CEFTRIAXONE 1 GM in DEXTROSE 5%-WATER - 50 ML IVPB SCH (06:28)
[2020-06-26 07:30] LABS: BASO % 0.7 % (0-2.0); EOS % 0.4 % (0-4.5); HEMATOCRIT 34.9 % (35.4-49); HEMOGLOBIN 11.6 GM/dL (11.7-16.9); LYMPH % 8.5 % (8-40); MCH 27.7 pg (25.7-33.7); MCHC 33.1 g/dl (32.0-35.9); MEAN CELL VOLUME 83.5 fl (80-96); MEAN PLT VOLUME 8.5 fl (7.5-11.1); MONO % 2.1 % (3.8-10.2); NEUT % 88.3 % (42.8-82.8); PLATELET COUNT 569 K/MM3 (134-434); RBC 4.19 M/mm3 (4.00-5.60); RDW 15.1 % (11.9-15.9); WHITE BLOOD COUNT 12.1 K/mm3 (4.0-10.0)
[2020-06-26 08:00] LABS: POTASSIUM 4.2 mmol/L (3.5-5.1)
[2020-06-26 08:07] LABS: ALBUMIN 2.4 g/dl (3.4-5.0); BILIRUBIN,TOTAL 0.8 mg/dL (0.2-1); BLOOD UREA NITROGEN 21.8 mg/dL (7-18); CALCIUM 8.6 mg/dL (8.5-10.1); CREATININE 0.9 mg/dL (0.55-1.3); TOT PROT 6.4 g/dl (6.4-8.2)
[2020-06-26] MEDS ORDERED: DOXYCYCLINE HYCLATE 100 MG VIAL ONE (09:10)
[2020-06-26] MEDS ORDERED: DEXTROSE 5%-WATER 100 ML IVPB ONE (09:11)
[2020-06-26] MEDS: DOXYCYCLINE INJECTION 100 MG in DEXTROSE 5%-WATER 100 ML IVPB SCH (09:40)
[2020-06-26] MEDS: DEXAMETHASONE SOD PHOSPHATE 4 MG/1 ML VIAL IVPUSH SCH (09:40)
[2020-06-26] MEDS: amLODIPine BESYLATE 5 MG TABLET (FP) PO SCH (09:41)
[2020-06-26] MEDS: ASCORBIC ACID 250 MG TABLET (FP) PO SCH ×2 (09:41→21:56)
[2020-06-26] MEDS: CHOLECALCIFEROL (VIT D3) 1,000 UNIT (25 MCG) TABLET PO SCH (09:42)
[2020-06-26] MEDS: ZINC SULFATE 220 MG CAPSULE (FP) PO SCH (09:43)
[2020-06-26] MEDS: ENOXAPARIN NA (PORCINE) 80 MG/0.8 ML DISP.SYRIN SQ SCH ×2 (09:44→21:55)
--- NOTE | 2020-06-26 14:32 | PN ---
Progress Note (short form) - Note Progress Note: PULMONARY VSS/AFEBRILE OFFERS NO COMPLAINTS APPEARS COMFORTABLE ON HIGH FLOW ANICTERIC SCATTERED RHONCHI S1S2 BS+ NO EDEMA LFT'S DECREASING D-DIMER DECREASING ID NOTE REVIEWED/AGREE WITH PLAN OUTLINED covid-19 pneumonitis Remdesivir/monitor lft's/cr clearance Hiv is negative Daily Decadron Full AC HFOT support Follow inflammatory markers Urine antigens are negative Will follow closely Abi WOOD MD
--- NOTE | 2020-06-26 14:48 | PN ---
Physical Exam: SUBJECTIVE: Patient seen and examinedthis morning. ptn remains on HF O2 at 40FIO2 50L. Speaking in full sentences, less difficulty breathing. States he is feeling better. OBJECTIVE: Vital Signs Period Temp Pulse Resp BP Sys/Pires Pulse Ox Last 24 Hr 97.4 F-98.2 F 65-75 22-26 133-144/66-91 95-97 GENERAL: The patient is awake, alert, and fully oriented, in no acute distress. HEAD: Normal with no signs of trauma. EYES: PERRL, extraocular movements intact, sclera anicteric, conjunctiva clear. No ptosis. NECK: Trachea midline, full range of motion, supple. LUNGS: Breath improving, less wheezing, less crackles. HEART: Regular rate and rhythm, S1, S2 without murmur, rub or gallop. ABDOMEN: Soft, nontender, nondistended, normoactive bowel sounds EXTREMITIES: 2+ pulses, warm, well-perfused, no edema. NEUROLOGICAL: Normal speech, gait not observed. PSYCH: Normal mood, normal affect. SKIN: Warm, dry, normal turgor, no rashes or lesions noted Laboratory Results - last 24 hr CBC, BMP 06/26/20 06:35 06/26/20 06:35 Active Medications Generic Name Dose Route Start Last Admin Trade Name Adair PRN Reason Stop Dose Admin Amlodipine Besylate 5 mg 06/25/20 10:00 06/26/20 09:41 Norvasc - PO 5 mg DAILY ERICKSON Administration Ascorbic Acid 250 mg 06/25/20 10:00 06/26/20 09:41 Vitamin C - PO 250 mg BID ERICKSON Administration Cholecalciferol 1,000 unit 06/25/20 10:00 06/26/20 09:42 Vitamin D3 - PO 1,000 unit DAILY REICKSON Administration Dexamethasone Sodium Phosphate 6 mg 06/26/20 10:00 06/26/20 09:40 Decadron Injection - IVPUSH 6 mg DAILY ERICKSON Administration Enoxaparin Sodium 90 mg 06/25/20 01:00 06/26/20 09:44 Lovenox - SQ 90 mg BID ERICKSON Administration Non-Formulary Medication 100 250 mls @ 250 mls/hr 06/25/20 22:00 06/25/20 21:51 mg/ Sodium Chloride IVPB 06/28/20 22:59 250 mls/hr DAILY@2200 ERICKSON Administration Ceftriaxone Sodium 1 gm/ 50 mls @ 100 mls/hr 06/26/20 06:00 06/26/20 06:28 Dextrose IVPB 100 mls/hr DAILY ERICKSON Administration Protocol Doxycycline Hyclate 100 mg/ 100 mls @ 50 mls/hr 06/25/20 22:00 06/26/20 09:40 Dextrose IVPB 50 mls/hr BID ERICKSON Administration Zinc Sulfate 220 mg 06/25/20 10:00 06/26/20 09:43 Orazinc - PO 220 mg DAILY ERICKSON Administration ASSESSMENT/PLAN: 60 yo M w/ PMHx of HTN, HLD, and pre-diabetes, w/ 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 COVID PNEUMONIA (+), R/O SUPERIMPOSED BACTERIAL PNEUMONIA -Covid Isolation precautions in effect -c/w remdisivir: Currently day 12/11 -c/w ceftriaxone: 1gm/day -c/w doxycycline: 100ml BID -c/w decadron: day 12/16 -c/w Vit C/D/Zinc -Daily Covid Labs: Trending down -ID Consulted -Hep Serologies Pending -Pulm Consulted -Working on Convalescent Plasma. Consent Signed ACUTE HYPOXIC RESPIRATORY FAILURE -Monitor Sat, Keep above 90 -High Flow O2 -No nebulizers 2/2 Covid -Negative: -Legionella -Strep Pneumo TRANSAMINITIS -2/2 Covid -LFTs trending down THROMBOCYTOSIS -Likely 2/2 Infammation -Trend HTN: -Norvasc 5mg qdaily FEN -No standing fluids -Monitor lytes -Regular diet PPx -Therapeutic Dose Lovenox DISPO: Continue to monitor the patient on med surg floors Visit type - Emergency Visit Emergency Visit: No - New Patient This patient is new to me today: No - Critical Care Critical Care patient: No - Discharge Referral Referred to [facility] Med P.C.: No ATTENDING PHYSICIAN STATEMENT I saw and evaluated the patient. I reviewed the resident's note and discussed the case with the resident. I agree with the resident's findings and plan as documented. SUBJECTIVE: OBJECTIVE: ASSESSMENT AND PLAN:
--- NOTE | 2020-06-26 17:52 | PN ---
Progress Note (short form) - Note Progress Note: no cough he feels improved still on high flow oxygen Vital Signs Period Temp Pulse Resp BP Sys/Ipres Pulse Ox Last 24 Hr 97.4 F-98.2 F 65-75 22-26 133-144/66-91 95-98 cor-rrr lungs decreased bs at bases abd soft,nt ext no edema CBC, BMP 06/26/20 06:35 06/26/20 06:35 Microbiology 06/24/20 17:50 Urine - Urine Clean Catch Urine Culture - Final NO GROWTH OBTAINED 06/24/20 17:50 Blood - Peripheral Venous Blood Culture - Preliminary NO GROWTH OBTAINED AFTER 24 HOURS, INCUBATION TO CONTINUE FOR 4 DAYS. 06/24/20 17:50 Blood - Peripheral Venous Blood Culture - Preliminary NO GROWTH OBTAINED AFTER 24 HOURS, INCUBATION TO C ONTINUE FOR 4 DAYS. 06/25/20 14:17 Urine For Antigen Detection Legionella Antigen - Final 06/25/20 14:17 Urine For Antigen Detection Streptococcus pneumoniae Antigen (M - Final HIV negative a/p covid 19 pneumonia with hypoxia- continue rocephin, d/c doxy continue steroids, a/c, remdesivir- lfts improving, renal function stable inflammatory markers improving d/w hospitalist Problem List - Problems (1) Pneumonia due to COVID-19 virus Code(s): U07.1 - COVID POSITIVE; J12.89 - OTHER VIRAL PNEUMONIA (2) Acute hypoxemic respiratory failure due to COVID-19 Code(s): U07.1 - COVID POSITIVE; J96.01 - ACUTE RESPIRATORY FAILURE WITH HYPOXIA (3) Abnormal LFTs Code(s): R94.5 - ABNORMAL RESULTS OF LIVER FUNCTION STUDIES (4) Rhabdomyolysis Code(s): M62.82 - RHABDOMYOLYSIS
--- NOTE | 2020-06-26 18:14 | PN ---
Teaching Attending Note Name of Resident: Lobito Mike ATTENDING PHYSICIAN STATEMENT I saw and evaluated the patient. I reviewed the resident's note and discussed the case with the resident. I agree with the resident's findings and plan as documented. SUBJECTIVE: No fever or chills. No Pain, breathing is better . OBJECTIVE: NAD, awake, alert, cooperative. High flow O2 on. CV: RRR, no MRG. Lungs: bilateral bibasilar crackles. Ext: No edema or erythema on upper or lower extremities. Abd: soft, NT, ND , NL BS. ASSESSMENT AND PLAN: 60 y/o man with h/o pre-DM, HL, HTN, recent COVID diagnosis ( 1 week white ) who presented with SOB, and fever and was found to have acute hypoxic resp failure. 1- Acute hypoxic resp failure 2- COVID PNA 3- Transaminitis : due to COVID Plan: - stable respiratory status. inflammatory markers have improved - cont Lovenox - cont Remdisivir - cont steroids day 12/16 - received plasma - d/w ID . cont ceftriaxone only - follow inflammatory markers. - taper down O2. cont Pulse Ox monitoring . - Airborne isolation
[2020-06-26] MEDS ORDERED: PT OWN MED DRAWER 7, Y5N ONE (19:25)
[2020-06-26] MEDS: REMDESIVIR 100 MG in SODIUM CHLORIDE 230 ML IVPB SCH (21:56)
[2020-06-27 06:54] LABS: BASO % 0.5 % (0-2.0); EOS % 0.2 % (0-4.5); HEMATOCRIT 35.4 % (35.4-49); HEMOGLOBIN 11.5 GM/dL (11.7-16.9); LYMPH % 6.6 % (8-40); MCH 27.5 pg (25.7-33.7); MCHC 32.4 g/dl (32.0-35.9); MEAN CELL VOLUME 84.7 fl (80-96); MEAN PLT VOLUME 8.2 fl (7.5-11.1); NEUT % 88.7 % (42.8-82.8); PLATELET COUNT 606 K/MM3 (134-434); RBC 4.18 M/mm3 (4.00-5.60); WHITE BLOOD COUNT 11.4 K/mm3 (4.0-10.0)
[2020-06-27 07:27] LABS: ALBUMIN 2.3 g/dl (3.4-5.0); BLOOD UREA NITROGEN 19.8 mg/dL (7-18); CALCIUM 8.5 mg/dL (8.5-10.1); CREATININE 0.9 mg/dL (0.55-1.3); POTASSIUM 4.7 mmol/L (3.5-5.1); TOT PROT 6.2 g/dl (6.4-8.2)
[2020-06-27] MEDS ORDERED: DEXTROSE 5%-WATER - 50 ML IVPB ONE (09:13)
[2020-06-27] MEDS ORDERED: cefTRIAXone SODIUM 1 GM VIAL ONE (09:13)
[2020-06-27] MEDS: DEXAMETHASONE SOD PHOSPHATE 4 MG/1 ML VIAL IVPUSH SCH (09:17)
[2020-06-27] MEDS: ZINC SULFATE 220 MG CAPSULE (FP) PO SCH (09:19)
[2020-06-27] MEDS: ASCORBIC ACID 250 MG TABLET (FP) PO SCH ×2 (09:19→21:54)
[2020-06-27] MEDS: amLODIPine BESYLATE 5 MG TABLET (FP) PO SCH (09:19)
[2020-06-27] MEDS: CHOLECALCIFEROL (VIT D3) 1,000 UNIT (25 MCG) TABLET PO SCH (09:19)
[2020-06-27] MEDS: CEFTRIAXONE 1 GM in DEXTROSE 5%-WATER - 50 ML IVPB SCH (09:20)
[2020-06-27] MEDS: ENOXAPARIN NA (PORCINE) 80 MG/0.8 ML DISP.SYRIN SQ SCH ×2 (09:21→21:53)
--- NOTE | 2020-06-27 11:48 | PN ---
Progress Note (short form) - Note Progress Note: PULMONARY VSS/AFEBRILE OFFERS NO COMPLAINTS APPEARS COMFORTABLE ON HIGH FLOW ANICTERIC SCATTERED RHONCHI S1S2 BS+ NO EDEMA LFT'S DECREASING D-DIMER DECREASING INFLAMMATORY MARKERS ARE DECREASING ID NOTE REVIEWED/AGREE WITH PLAN OUTLINED covid-19 pneumonitis Remdesivir/monitor lft's/cr clearance Hiv is negative Daily Decadron Full AC HFOT support Follow inflammatory markers Urine antigens are negative Will follow closely Abi WOOD MD
--- NOTE | 2020-06-27 13:09 | PN ---
Physical Exam: SUBJECTIVE: Patient seen and examined no acute distress, breathing easier. Endorses no complaints. OBJECTIVE: Vital Signs Period Temp Pulse Resp BP Sys/Pires Pulse Ox Last 24 Hr 97.9 F-98.4 F 52-65 20-22 124-161/81-86 90-100 GENERAL: The patient is awake, alert, and fully oriented, in no acute distress, breathing comfortably HEAD: Normal with no signs of trauma. EYES: PERRL, extraocular movements intact, sclera anicteric, conjunctiva clear. No ptosis. NECK: Trachea midline, full range of motion, supple. LUNGS: Breath improving, less wheezing, less crackles, less labored HEART: Regular rate and rhythm, S1, S2 without murmur, rub or gallop. ABDOMEN: Soft, nontender, nondistended, normoactive bowel sounds EXTREMITIES: 2+ pulses, warm, well-perfused, no edema. NEUROLOGICAL: Normal speech, gait not observed. PSYCH: Normal mood, normal affect. SKIN: Warm, dry, normal turgor, no rashes or lesions noted Laboratory Results - last 24 hr CBC, BMP 06/27/20 05:45 06/27/20 05:45 Active Medications Generic Name Dose Route Start Last Admin Trade Name Freq PRN Reason Stop Dose Admin Amlodipine Besylate 5 mg 06/25/20 10:00 06/27/20 09:19 Norvasc - PO 5 mg DAILY ERICKSON Administration Ascorbic Acid 250 mg 06/25/20 10:00 06/27/20 09:19 Vitamin C - PO 250 mg BID ERICKSON Administration Cholecalciferol 1,000 unit 06/25/20 10:00 06/27/20 09:19 Vitamin D3 - PO 1,000 unit DAILY ERICKSON Administration Dexamethasone Sodium Phosphate 6 mg 06/26/20 10:00 06/27/20 09:17 Decadron Injection - IVPUSH 6 mg DAILY ERICKSON Administration Enoxaparin Sodium 90 mg 06/25/20 01:00 06/27/20 09:21 Lovenox - SQ 90 mg BID ERICKSON Administration Non-Formulary Medication 100 250 mls @ 250 mls/hr 06/25/20 22:00 06/26/20 21:56 mg/ Sodium Chloride IVPB 06/28/20 22:59 250 mls/hr DAILY@2200 ERICKSON Administration Ceftriaxone Sodium 1 gm/ 50 mls @ 100 mls/hr 06/26/20 06:00 06/27/20 09:20 Dextrose IVPB 100 mls/hr DAILY ERICKSON Administration Protocol Zinc Sulfate 220 mg 06/25/20 10:00 06/27/20 09:19 Orazinc - PO 220 mg DAILY ERICKSON Administration ASSESSMENT/PLAN: 60 yo M w/ PMHx of HTN, HLD, and pre-diabetes, 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 COVID PNEUMONIA -Covid Isolation precautions in effect -c/w remdisivir: Currently day 01/11 -c/w ceftriaxone: 1gm/day -c/w decadron: day 01/16 -c/w Vit C/D/Zinc -Daily Covid Labs: Continues to trend down -ID Consulted -Hep Serologies Still Pending -Pulm Consulted -Working on Convalescent Plasma. Consent Signed ACUTE HYPOXIC RESPIRATORY FAILURE -Monitor Sat, Keep above 90 -High Flow O2 -Resp Consulted to determine if trial of decreased HFO2 is warranted -No nebulizers 2/2 Covid -Negative: -Legionella -Strep Pneumo TRANSAMINITIS -2/2 Covid -LFTs trending down THROMBOCYTOSIS -Trending up -Likely 2/2 Infammation HTN: -Norvasc 5mg qdaily FEN -No standing fluids -Monitor lytes -Regular diet PPx -Therapeutic Dose Lovenox DISPO: Continue to monitor the patient on med surg floors Visit type - Emergency Visit Emergency Visit: No - New Patient This patient is new to me today: No - Critical Care Critical Care patient: No - Discharge Referral Referred to [facility] Med P.C.: No ATTENDING PHYSICIAN STATEMENT I saw and evaluated the patient. I reviewed the resident's note and discussed the case with the resident. I agree with the resident's findings and plan as documented. SUBJECTIVE: OBJECTIVE: ASSESSMENT AND PLAN:
--- NOTE | 2020-06-27 14:07 | PN ---
Progress Note (short form) - Note Progress Note: feels better today Vital Signs Period Temp Pulse Resp BP Sys/Pires Pulse Ox Last 24 Hr 97.9 F-98.4 F 52-65 20-22 124-161/81-86 90-100 cor-rrr lungs bilateral rhonchi abd soft,nt ext no edema CBC, BMP 06/27/20 05:45 06/27/20 05:45 Microbiology 06/24/20 17:50 Blood - Peripheral Venous Blood Culture - Preliminary NO GROWTH OBTAINED AFTER 48 HOURS, INCUBATION TO CONTINUE FOR 3 DAYS. 06/24/20 17:50 Blood - Peripheral Venous Blood Culture - Preliminary NO GROWTH OBTAINED AFTER 48 HOURS, INCUBATION TO CONTINUE FOR 3 DAYS. 06/24/20 17:50 Urine - Urine Clean Catch Urine Culture - Final NO GROWTH OBTAINED 06/25/20 14:17 Urine For Antigen Detection Legionella Antigen - Final 06/25/20 14:17 Urine For Antigen Detection Streptococcus pneumoniae Antigen (M - Final Laboratory Tests 06/24/20 06/25/20 06/26/20 17:50 06:30 06:35 D-Dimer 1899 H 809 H C-Reactive Protein > 19.0 H 06/27/20 05:45 D-Dimer C-Reactive Protein 10.6 H HIV negative a/p covid 19 pneumonia with hypoxia- continue rocephin, continue steroids, a/c, remdesivir- lfts improving, renal function stable inflammatory markers improving Problem List - Problems (1) Pneumonia due to COVID-19 virus Code(s): U07.1 - COVID POSITIVE; J12.89 - OTHER VIRAL PNEUMONIA (2) Acute hypoxemic respiratory failure due to COVID-19 Code(s): U07.1 - COVID POSITIVE; J96.01 - ACUTE RESPIRATORY FAILURE WITH HYPOXIA (3) Abnormal LFTs Code(s): R94.5 - ABNORMAL RESULTS OF LIVER FUNCTION STUDIES (4) Rhabdomyolysis Code(s): M62.82 - RHABDOMYOLYSIS
--- NOTE | 2020-06-27 14:13 | PN ---
Teaching Attending Note Name of Resident: Lobito Mike ATTENDING PHYSICIAN STATEMENT I saw and evaluated the patient. I reviewed the resident's note and discussed the case with the resident. I agree with the resident's findings and plan as documented. SUBJECTIVE: no fever or chills. He feels much better OBJECTIVE: NAD, awake, alert, cooperative. High flow O2 on. CV: RRR, no MRG. Lungs: bilateral bibasilar crackles. Ext: No edema or erythema on upper or lower extremities. Abd: soft, NT, ND , NL BS. ASSESSMENT AND PLAN: 60 y/o man with h/o pre-DM, HL, HTN, recent COVID diagnosis ( 1 week white ) who presented with SOB, and fever and was found to have acute hypoxic resp failure. 1- Acute hypoxic resp failure 2- COVID PNA 3- Transaminitis : due to COVID Plan: - stable condition . improved inflammatory markers - cont Lovenox - cont Remdisivir - cont steroids day / - received plasma - cont ceftriaxone day 3 - follow inflammatory markers. - taper down O2. try venti mask . cont Pulse Ox monitoring . - Airborne isolation ASSESSMENT AND PLAN:
[2020-06-27] MEDS ORDERED: DOCUSATE SODIUM 100 MG CAPSULE (FP) PO PRN (18:00)
[2020-06-27] MEDS ORDERED: PT OWN MED DRAWER 7, Y5N ONE (19:21)
[2020-06-27] MEDS: REMDESIVIR 100 MG in SODIUM CHLORIDE 230 ML IVPB SCH (21:53)
[2020-06-28 06:41] LABS: BASO % 0.7 % (0-2.0); EOS % 0.3 % (0-4.5); HEMATOCRIT 35.9 % (35.4-49); HEMOGLOBIN 11.7 GM/dL (11.7-16.9); LYMPH % 11.1 % (8-40); MCH 27.9 pg (25.7-33.7); MCHC 32.8 g/dl (32.0-35.9); MONO % 4.3 % (3.8-10.2); NEUT % 83.6 % (42.8-82.8); PLATELET COUNT 655 K/MM3 (134-434); RBC 4.22 M/mm3 (4.00-5.60); RDW 15.1 % (11.9-15.9); WHITE BLOOD COUNT 11.8 K/mm3 (4.0-10.0)
[2020-06-28 07:09] LABS: ALBUMIN 2.5 g/dl (3.4-5.0); BILIRUBIN,TOTAL 0.8 mg/dL (0.2-1); BLOOD UREA NITROGEN 19.8 mg/dL (7-18); CALCIUM 8.3 mg/dL (8.5-10.1); CREATININE 0.9 mg/dL (0.55-1.3); POTASSIUM 5.1 mmol/L (3.5-5.1); TOT PROT 6.2 g/dl (6.4-8.2)
[2020-06-28] MEDS ORDERED: cefTRIAXone SODIUM 1 GM VIAL ONE (09:20)
[2020-06-28] MEDS ORDERED: DEXTROSE 5%-WATER - 50 ML IVPB ONE (09:20)
[2020-06-28] MEDS: CEFTRIAXONE 1 GM in DEXTROSE 5%-WATER - 50 ML IVPB SCH (09:22)
[2020-06-28] MEDS: amLODIPine BESYLATE 5 MG TABLET (FP) PO SCH (09:22)
[2020-06-28] MEDS: DEXAMETHASONE SOD PHOSPHATE 4 MG/1 ML VIAL IVPUSH SCH (09:22)
[2020-06-28] MEDS: ZINC SULFATE 220 MG CAPSULE (FP) PO SCH (09:22)
[2020-06-28] MEDS: CHOLECALCIFEROL (VIT D3) 1,000 UNIT (25 MCG) TABLET PO SCH (09:23)
[2020-06-28] MEDS: ENOXAPARIN NA (PORCINE) 80 MG/0.8 ML DISP.SYRIN SQ SCH (09:23)
[2020-06-28] MEDS: ASCORBIC ACID 250 MG TABLET (FP) PO SCH ×2 (09:23→21:59)
--- NOTE | 2020-06-28 12:11 | PN ---
Progress Note (short form) - Note Progress Note: PULMONARY VSS/AFEBRILE OFFERS NO COMPLAINTS APPEARS COMFORTABLE ON NASAL 4L/M O2/SPO2 96% ANICTERIC SCATTERED RHONCHI MINIMAL S1S2 BS+ NO EDEMA LFT'S DECREASING D-DIMER DECREASING INFLAMMATORY MARKERS ARE DECREASING ID NOTE REVIEWED/AGREE WITH PLAN OUTLINED covid-19 pneumonitis crp under 10 Remdesivir/monitor lft's/cr clearance Hiv is negative Daily Decadron Full AC HFOT support Follow inflammatory markers Urine antigens are negative Will follow closely Abi WOOD MD
--- NOTE | 2020-06-28 13:37 | PN ---
Progress Note (short form) - Note Progress Note: Subjective: no fever or chills . no pain , no diarrhea , no LLOYD . no SOB . feels better Objective: Vital Signs: Last Vital Signs Temp Pulse Resp BP Pulse Ox 97.5 F L 57 L 20 122/66 96 06/28/20 10:00 06/28/20 11:12 06/28/20 10:00 06/28/20 10:00 06/28/20 11:12 Laboratory Results - last 24 hr 06/28/20 06/28/20 06/28/20 05:45 05:45 05:45 WBC 11.8 H RBC 4.22 Hgb 11.7 Hct 35.9 MCV 85.0 MCH 27.9 MCHC 32.8 RDW 15.1 Plt Count 655 H MPV 8.0 Absolute Neuts (auto) 9.8 H Neutrophils % 83.6 H Lymphocytes % 11.1 D Monocytes % 4.3 Eosinophils % 0.3 Basophils % 0.7 Nucleated RBC % 0 D-Dimer Sodium 137 Potassium 5.1 Chloride 104 Carbon Dioxide 28 Anion Gap 5 L BUN 19.8 H Creatinine 0.9 Est GFR (CKD-EPI)AfAm 105.72 Est GFR (CKD-EPI)NonAf 91.22 Random Glucose 105 Calcium 8.3 L Ferritin 1508.6 H Total Bilirubin 0.8 AST 63 H ALT 117 H Alkaline Phosphatase 143 H LD Total 429 H C-Reactive Protein 6.9 H Total Protein 6.2 L Albumin 2.5 L 06/28/20 05:45 WBC RBC Hgb Hct MCV MCH MCHC RDW Plt Count MPV Absolute Neuts (auto) Neutrophils % Lymphocytes % Monocytes % Eosinophils % Basophils % Nucleated RBC % D-Dimer 602 H Sodium Potassium Chloride Carbon Dioxide Anion Gap BUN Creatinine Est GFR (CKD-EPI)AfAm Est GFR (CKD-EPI)NonAf Random Glucose Calcium Ferritin Total Bilirubin AST ALT Alkaline Phosphatase LD Total C-Reactive Protein Total Protein Albumin Physical Exam: NAD, awake, alert, cooperative. High flow O2 on. CV: RRR, no MRG. Lungs: bilateral bibasilar crackles. Ext: No edema or erythema on upper or lower extremities. Abd: soft, NT, ND , NL BS. ASSESSMENT AND PLAN: 60 y/o man with h/o pre-DM, HL, HTN, recent COVID diagnosis ( 1 week white ) who presented with SOB, and fever and was found to have acute hypoxic resp failure. 1- Acute hypoxic resp failure 2- COVID PNA. 3- Transaminitis: due to COVID Plan: - cont to improve, now on NC 4 L - switch to Eliquis - cont Remdisivir ( last dose tonight ) - cont steroids day 02/15 - received plasma - cont ceftriaxone day 4. will stop tomorrow - follow inflammatory markers, ( improved ). anticipate dc in 1-2 days Visit type - Emergency Visit Emergency Visit: Yes ED Registration Date: 06/24/20 Care time: The patient presented to the Emergency Department on the above date and was hospitalized for further evaluation of their emergent condition. - New Patient This patient is new to me today: No - Critical Care Critical Care patient: No
[2020-06-28] MEDS ORDERED: PT OWN MED DRAWER 7, Y5N ONE (20:21)
[2020-06-28] MEDS: APIXABAN 5 MG TABLET PO SCH (21:59)
[2020-06-28] MEDS: REMDESIVIR 100 MG in SODIUM CHLORIDE 230 ML IVPB SCH (21:59)
[2020-06-29 08:13] LABS: ALBUMIN 2.4 g/dl (3.4-5.0); BILIRUBIN,TOTAL 0.4 mg/dL (0.2-1); CALCIUM 8.8 mg/dL (8.5-10.1); CREATININE 0.9 mg/dL (0.55-1.3); POTASSIUM 4.9 mmol/L (3.5-5.1); TOT PROT 5.9 g/dl (6.4-8.2)
[2020-06-29 08:47] LABS: BASO % 0.6 % (0-2.0); EOS % 0.8 % (0-4.5); HEMATOCRIT 36.9 % (35.4-49); HEMOGLOBIN 11.8 GM/dL (11.7-16.9); LYMPH % 10.4 % (8-40); MCH 27.4 pg (25.7-33.7); MCHC 32.1 g/dl (32.0-35.9); MEAN CELL VOLUME 85.4 fl (80-96); MEAN PLT VOLUME 8.1 fl (7.5-11.1); MONO % 4.5 % (3.8-10.2); NEUT % 83.7 % (42.8-82.8); PLATELET COUNT 723 K/MM3 (134-434); RBC 4.32 M/mm3 (4.00-5.60); RDW 14.9 % (11.9-15.9)
[2020-06-29] MEDS ORDERED: cefTRIAXone SODIUM 1 GM VIAL ONE (09:09)
[2020-06-29] MEDS ORDERED: DEXTROSE 5%-WATER - 50 ML IVPB ONE (09:09)
[2020-06-29] MEDS: APIXABAN 5 MG TABLET PO SCH (09:22)
[2020-06-29] MEDS: amLODIPine BESYLATE 5 MG TABLET (FP) PO SCH (09:22)
[2020-06-29] MEDS: ZINC SULFATE 220 MG CAPSULE (FP) PO SCH (09:22)
[2020-06-29] MEDS: CEFTRIAXONE 1 GM in DEXTROSE 5%-WATER - 50 ML IVPB SCH (09:22)
[2020-06-29] MEDS: ASCORBIC ACID 250 MG TABLET (FP) PO SCH (09:22)
[2020-06-29] MEDS: DEXAMETHASONE SOD PHOSPHATE 4 MG/1 ML VIAL IVPUSH SCH (09:22)
[2020-06-29] MEDS: CHOLECALCIFEROL (VIT D3) 1,000 UNIT (25 MCG) TABLET PO SCH (09:23)
--- NOTE | 2020-06-29 12:21 | PN ---
Progress Note (short form) - Note Progress Note: PULMONARY Breathing better. Saturating well on nasal cannula 4L/min. Vital Signs Period Temp Pulse Resp BP Sys/Pires Pulse Ox Last 24 Hr 97.5 F-98.5 F 48-96 18-20 131-161/66-89 94-100 Gen: NAD at rest Heart: RRR Lung: bibasilar rales Abd: soft, nontender Ext: no edema CBC, BMP 06/29/20 06:44 06/29/20 06:44 Laboratory Tests 06/29/20 06/29/20 06/29/20 06:44 06:44 06:44 D-Dimer 534 H Ferritin 1092.6 H LD Total 360 H C-Reactive Protein 4.0 H Active Medications Amlodipine Besylate (Norvasc -) 5 mg PO DAILY [facility] Last Admin: 06/29/20 09:22 Dose: 5 mg Documented by: Apixaban (Eliquis -) 5 mg PO BID [facility] Last Admin: 06/29/20 09:22 Dose: 5 mg Documented by: Ascorbic Acid (Vitamin C -) 250 mg PO BID [facility] Last Admin: 06/29/20 09:22 Dose: 250 mg Documented by: Cholecalciferol (Vitamin D3 -) 1,000 unit PO DAILY [facility] Last Admin: 06/29/20 09:23 Dose: 1,000 unit Documented by: Dexamethasone Sodium Phosphate (Decadron Injection -) 6 mg IVPUSH DAILY [facility] Last Admin: 06/29/20 09:22 Dose: 6 mg Documented by: Docusate Sodium (Colace -) 100 mg PO BID PRN PRN Reason: CONSTIPATION Ceftriaxone Sodium 1 gm/ (Dextrose) 50 mls @ 100 mls/hr IVPB DAILY [facility]; Protocol Last Admin: 06/29/20 09:22 Dose: 100 mls/hr Documented by: Zinc Sulfate (Orazinc -) 220 mg PO DAILY [facility] Last Admin: 06/29/20 09: Dose: 220 mg Documented by: A/P Acute Hypoxic Respiratory Failure COVID19 Pneumonia Elevated LFTs HTN Hyperlipidemia - completed remdesivir course - received convalascent plasma transfusion - continue decadron - O2 to keep SpO2 >90% - on empiric antibiotics - continue anticoagulation
[2020-06-29 14:09] VITALS: BP 131/77; PULSE 68; TEMP 98.2
--- NOTE | 2020-06-29 15:49 | PN ---
Teaching Attending Note Name of Resident: Lobito Mike ATTENDING PHYSICIAN STATEMENT I saw and evaluated the patient. I reviewed the resident's note and discussed the case with the resident. I agree with the resident's findings and plan as documented. SUBJECTIVE: no pain, no SOB . feels much better . walked with resp therapist OBJECTIVE: NAD, awake, alert, cooperative. CV: RRR, no MRG. Lungs: bilateral bibasilar crackles much imrpoved Ext: No edema or erythema on upper or lower extremities. ASSESSMENT AND PLAN: 60 y/o man with h/o pre-DM, HL, HTN, recent COVID diagnosis ( 1 week white ) who presented with SOB, and fever and was found to have acute hypoxic resp failure. 1- Acute hypoxic resp failure 2- COVID PNA. 3- Transaminitis: due to COVID Plan: - cont to improve, requires 3 L at trest and with exertion - cont eliquis x 2-3 months. refills as out pt - finsihed remdisivir. - finish a total of 10 days of steroids - received plasma - dc Abx - will not resume statin or Zetia as out pt until blood work is repeated with PCp due to LFTs dc home ./ d/w Dr. Cade and with Dr. Hernandez
--- NOTE | 2020-06-29 15:50 | DS ---
Physical Exam: SUBJECTIVE: Patient seen and examined OBJECTIVE: Vital Signs Period Temp Pulse Resp BP Sys/Pires Pulse Ox Last 24 Hr 97.5 F-98.5 F 48-96 18-22 131-161/66-89 94-100 PHYSICAL EXAM GENERAL: The patient is awake, alert, and fully oriented, in no acute distress. HEAD: Normal with no signs of trauma. EYES: PERRL, extraocular movements intact, sclera anicteric, conjunctiva clear. ENT: Ears normal, nares patent, oropharynx clear without exudates, moist mucous membranes. NECK: Trachea midline, full range of motion, supple. LUNGS: Breath sounds equal, clear to auscultation bilaterally, no wheezes, no crackles, no accessory muscle use. HEART: Regular rate and rhythm, S1, S2 without murmur, rub or gallop. ABDOMEN: Soft, nontender, nondistended, normoactive bowel sounds, no guarding, no rebound, no hepatosplenomegaly, no masses. EXTREMITIES: 2+ pulses, warm, well-perfused, no edema. NEUROLOGICAL: Cranial nerves II through XII grossly intact. Normal speech, gait not observed. PSYCH: Normal mood, normal affect. SKIN: Warm, dry, normal turgor, no rashes or lesions noted. LABS Laboratory Results - last 24 hr 06/29/20 06/29/20 06/29/20 06:04 06:44 06:44 WBC RBC Hgb Hct MCV MCH MCHC RDW Plt Count MPV Absolute Neuts (auto) Neutrophils % Lymphocytes % Monocytes % Eosinophils % Basophils % Nucleated RBC % D-Dimer Sodium 138 Potassium 4.9 Chloride 106 Carbon Dioxide 27 Anion Gap 5 L BUN 19.0 H Creatinine 0.9 Est GFR (CKD-EPI)AfAm 105.72 Est GFR (CKD-EPI)NonAf 91.22 POC Glucometer 97 Random Glucose 96 Calcium 8.8 Ferritin 1092.6 H Total Bilirubin 0.4 AST 47 H ALT 103 H Alkaline Phosphatase 133 H LD Total 360 H C-Reactive Protein 4.0 H Total Protein 5.9 L Albumin 2.4 L 06/29/20 06/29/20 06:44 06:44 WBC 12.0 H RBC 4.32 Hgb 11.8 Hct 36.9 MCV 85.4 MCH 27.4 MCHC 32.1 RDW 14.9 Plt Count 723 H MPV 8.1 Absolute Neuts (auto) 10.0 H Neutrophils % 83.7 H Lymphocytes % 10.4 Monocytes % 4.5 Eosinophils % 0.8 D Basophils % 0.6 Nucleated RBC % 0 D-Dimer 534 H Sodium Potassium Chloride Carbon Dioxide Anion Gap BUN Creatinine Est GFR (CKD-EPI)AfAm Est GFR (CKD-EPI)NonAf POC Glucometer Random Glucose Calcium Ferritin Total Bilirubin AST ALT Alkaline Phosphatase LD Total C-Reactive Protein Total Protein Albumin HOSPITAL COURSE: Date of Admission:06/24/20 CXR: A single view of the chest has been submitted. The study is abnormal. There is a large heart, aorta, prominent aaron and a mixture of congestive and bilateral infiltrative changes. Angles are sharp. The soft tissues are intact. There are degenerative changes. Date of Discharge: 06/29/20 60M w/ PMHx of HTN, HLD, pre-DM BIBA for complaints of SOB while at rest, lying down. Had outpatient testing and was found to be COVID+, 2d prior to admission. Endorses SOB [id number], usually with activity and walking throughout the house. On day of admission ptn was concerned bc it was the first time he was SOB while at rest. Additionally has had associated fever(intermittently 100F, on home thermometer), diarrhea, low appetite, weight loss. Denies cough, NV, loss of taste, loss of smell. 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 Denies sick family members. ER course was notable for: -99.9F, 97, 137/91, 24 -88% on 4L, 95% on 7L, then placed on hiflow for comfort -Ddimer 189 -AST/ALT 228/250 -CXR: congestive and bilateral infilitrative changes -dexamethasone 6mg IVP, NS @100 -EM contacted Pulmonary who approved Remdesivir Ptn was admitted to the floors after being deemed stable enough to not need the ICU. Ptn was started on Ceftriaxone, Azithromycin, Decadron, and Remdisavir after consulting Pulm. Additionally, Convalescent Plasma was ordered and administered. Over the patient's course Covid markers were trended and downtrended over his stay. Ptn initially was started on HF O2 at 40FIO2 50L and was downgraded to NC 4L after being seen by RT. Ptn was deemed medically stable for DC on sent home on Eliquis 5mg BID for 3 months as well as 4 days of Decad ld (total 10), and home O2. Instructions to FU w/ Primary to repeat labs as well as precautions for any bleeding that may occur on eliquis. At time of DC ptn was medically stable to go home. Minutes to complete discharge: 36 Discharge Summary Problems reviewed: Yes Reason For Visit: COVID-19,RESPIRATORY FAILURE Current Active Problems Abnormal LFTs (Chronic) COVID-19 (Chronic) Condition: Improved - Instructions Diet, Activity, Other Instructions: Your visit: You were admitted to the hospital for COVID19 Pneumonia. You were found to have decreased oxygenation. You were treated with medications with improvement of your symptoms. During your stay, we noted: Imaging which showed an enlarged heart, as well as a slow heart beat, which we have referred you to a bindery library technical assistant for. Medications changes: -Please continue to take Decadron 6mg for 4 additional days. Start taking one pill per day on 06/30/2020. -Please start Eliquis 5mg, twice a day ( start tonight ) . Note: Eliquis can cause increased bleeding, please stop taking and return to hospital if you notice any blood in your stool, urine, or mouth, or if you find that you have increased weakness or lightheadedness or incontinence . -Continue to take all other home medications as prescribed. Follow up - Please follow-up with Dr. Hebert Cade (Pulmonology) in 1 week, to evaluate your lungs - Please follow-up with Dr. Flora Alcaraz (Cardiology ) in 1 week to evaluate your slow heart rate - Please follow-up with Dr. Glenn Delgado (Primary Care Provider) in 2 weeks for your general health needs. Additional Instructions: -You are being discharged to your home. -Please return to the Emergency Department if you experience worsening pain, fevers, chills, shortness of breath, or chest pain, or if you experience any worsening, new or concerning symptoms. Yo need repeat blood work in 2 weeks . liver enzymes, chemistry, blood count, and inflammatory markers. please see dr. delgado for that. Use 3 Liters of oxygen at rest and with ambulation , until you follow withthe lung doctor for further assessment. No smoking while on Oxygen, can burn your face blood thinners will be continued for 2-3 months. for refills , please ask dr. delgado for scripts Stop your zetia and lipitor for now due to elevated liver enzymes. your primary Md will advise on when to start again Referrals: Glenn Delgado MD [Primary Care Provider] - 2 Weeks Caleb Ortiz MD [Staff Physician] - 1 Week Lissa Hines MD [Staff Physician] - 1 Week Disposition: HOME - Home Medications Comprehensive Discharge Medication List: Ambulatory Orders Allopurinol [Zyloprim -] 100 mg PO DAILY 06/25/20 Amlodipine Besylate 10 mg PO DAILY 06/25/20 Hydrochlorothiazide 25 mg PO DAILY 06/25/20 Metformin HCl [Glucophage] 500 mg PO BID 06/25/20 Apixaban [Eliquis] 5 mg PO BID 90 Days #180 tablet MDD 2 pills 06/29/20 Dexamethasone [Decadron] 6 mg PO DAILY 5 Days #5 tablet MDD 1 Pill 06/29/20 This patient is new to me today: No Emergency Visit: No Critical Care patient: No - Discharge Referral Referred to [facility] Med [facility] No ATTENDING PHYSICIAN STATEMENT I saw and evaluated the patient. I reviewed the resident's note and discussed the case with the resident. I agree with the resident's findings and plan as documented. SUBJECTIVE: OBJECTIVE: ASSESSMENT AND PLAN:
== END 2020-06-29 17:27 | disposition home or self-care (01) | DRG 177 ==
LOC: JER 17:30 → JERBED 18:06 → J4W 06-25 18:17
PROVIDERS: ADMIT Internal Medicine; ATTEND Internal Medicine
PROC: 8E0ZXY6 Isolation (ICD-10-PCS; principal; 2020-06-24)
PROC: XW033E5 Introduction of Remdesivir Anti-infective into Peripheral Vein, Percutaneous Approach, New Technology Group 5 (ICD-10-PCS; 2020-06-24)
PROC: XW13325 Transfusion of Convalescent Plasma (Nonautologous) into Peripheral Vein, Percutaneous Approach, New Technology Group 5 (ICD-10-PCS; 2020-06-25)
DX: U07.1 COVID-19 (principal); J96.01 Acute respiratory failure with hypoxia; J12.89 Other viral pneumonia; E46 Unspecified protein-calorie malnutrition; M62.82 Rhabdomyolysis; I10 Essential (primary) hypertension; E78.5 Hyperlipidemia, unspecified; E88.09 Other disorders of plasma-protein metabolism, not elsewhere classified; R73.03 Prediabetes; R94.31 Abnormal electrocardiogram [ECG] [EKG]; R74.0 Nonspecific elevation of levels of transaminase and lactic acid dehydrogenase [LDH]; R94.5 Abnormal results of liver function studies; D47.3 Essential (hemorrhagic) thrombocythemia; I51.7 Cardiomegaly
CPT/HCPCS: 36415; 36430; 36600; 71045-TC-FY; 80053; 80074; 81003; 82248; 82550; 82553; 82728; 82803; 82962; 83036; 83605; 83615; 83735; 84100; 84484; 85025; 85027; 85379; 85610; 85730; 86140; 86850; 86900; 86901; 87040; 87086; 87389; 87899; 94761; 99285-25; P9017